=== PATIENT | female | born 1990 | race Caucasian/White ===

== ENCOUNTER 2020-05-12 16:00 | Inpatient (IN) | payer OTHER, SELFPAY ==
[2020-05-12] VITALS (8 sets, daily range): BP systolic 104–113; BP diastolic 63–90; PULSE 84–94; RESP 18–20; TEMP 36.9–37.3; BMI 31.0
--- OUTSIDE RECORDS SUMMARY | 2020-05-12 16:03 | XMS_ITS | Encounter Summary ---
:1990 Author Care Team Providers Name Role Phone Kelvin Fabian Primary Care Provider [phone] Reason for Visit return OB visit Assessment and Plan 1. Routine care ? streptococcus group B, cul ture, vaginal or rectal Discussion Note: None recorded.Patient educational handouts: No information available. Plan of Care Reminders Provider Appointments None recorded. ? ? Lab Streptococcus Gat [facility] Group B, Culture, Vaginal 04/23/2020 [facility] (Lab) or Rectal Referral None recorded. ? ? Procedures None recorded. ? ? Surgeries None recorded. ? ? Imaging None recorded. ? ? Medications Name Start Date ? ? Afluria Quad 7654-8062 (PF) 60 mcg (15 mcg x 4)/0.5 mL IM syringe ? ADM 0.5ML IM UTD ferrous sulfate 325 mg (65 mg iron) tablet ? TK 1 T PO BID PrePlus 27 mg iron-1 mg tablet ? Take 1 tablet every day by oral route. Notes: benadryl daily Medications Administered None recorded. Vitals Weight Blood Pressure 182 lbs 117/71 mm[Hg] Results Lab Results None recorded. Allergies Code Code System Name Reaction Severity Onset
--- OUTSIDE RECORDS SUMMARY | 2020-05-12 16:03 | XMS_ITS | Encounter Summary ---
:1990 Author Care Team Providers Name Role Phone Kelvin Fabian Primary Care Provider [phone] Reason for Visit return OB visit Assessment and Plan 1. Routine care Discussion Note: None recorded.Patient educational handouts: No information available. Plan of Care Reminders Provider Appointments None ? ? recorded. Lab None ? ? recorded. Referral None ? ? recorded. Procedures None ? ? recorded. Surgeries None ? ? recorded. Imaging None ? ? recorded. Medications Name Start Date ? ? Afluria Quad 2535-9919 (PF) 60 mcg (15 mcg x 4)/0.5 mL IM syringe ? ADM 0.5ML IM UTD ferrous sulfate 325 mg (65 mg iron) tablet ? TK 1 T PO BID PrePlus 27 mg iron-1 mg tablet ? Take 1 tablet every day by oral route. Notes: benadryl daily Medications Administered None recorded. Vitals Height Weight Blood Pressure 5 ft 4 in 181 lbs 114/67 mm[Hg] Results Lab Results None recorded. Allergies Code Code System Name Reaction Severity Onset NKDA ? ? ? Problems Name Status Onset Date Source ?
--- OUTSIDE RECORDS SUMMARY | 2020-05-12 16:03 | XMS_ITS ---
:1990 Author Care Team Providers Name Role Phone KAYY BETH Primary Care Provider [phone] Allergies Code Code System Name Reaction Severity Status Onset NKDA ? Medications Name Status Start Date Stop Date ? ? Afluria Quad 7635-1682 (PF) 60 mcg (15 mcg x 4)/0.5 mL IM syring e Active ? Not available ADM 0.5ML IM UTD amoxicillin 500 mg capsule Completed ? 10/18 amoxicillin 875 mg tablet Completed ? 2017 diclofenac 1 % topical gel Completed ? 10/18 DOK 100 mg capsule Completed ? 10/19/2019 ferrous sulfate 325 mg (65 mg iron) Active ? Not available tablet fluticasone propionate 50 mcg/actuation Completed ? 10/19/2019 nasal spray,suspension oxycodone-acetaminophen 5 mg-325 mg Completed ? 03/14/2018 tablet PrePlus 27 mg iron-1 mg tablet Active ? N ot available tramadol 50 mg tablet Completed ? 10/19/2019 Notes: benadryl daily Problems Name Status Onset Date Source ? Unknown 03/28/2018 ? Active 10/19/2019 ? Procedures Date Name Performed by ? 03/14/2018 US, Obstetric, Nuchal Translucency [facility] (One Call Scheduling) [address] [place], [place] [address] (Work Place) 05/10/2018 US, Obstetric, Maternal [facility] (One Call Scheduling) Evaluation + Anatomy [address] [facility]
--- OUTSIDE RECORDS SUMMARY | 2020-05-12 16:03 | XMS_ITS | Encounter Summary ---
:1990 Author Care Team Providers Name Role Phone Kelvin Fabian Primary Care Provider [phone] Reason for Visit return OB visit Assessment [...] Name Start Date ? ? Afluria Quad 2554-1354 (PF) 60 mcg (15 mcg x 4)/0.5 mL IM syringe ? ADM 0.5ML IM UTD ferrous sulfate 325 mg (65 mg iron) tablet ? TK 1 T PO BID PrePlus 27 mg iron-1 mg tablet ? Take 1 tablet every day by oral route. Notes: benadryl daily Medications Administered None recorded. Vitals Weight Blood Pressure 170 lbs 112/67 mm[Hg] Results Lab Results None recorded. Allergies Code Code System Name Reaction Severity Onset NKDA ? ? ? Problems Name Status Onset Date Source ? Active
[2020-05-12 16:34] LABS: Basophils Percent Auto 0.2 % (0.2-1.2); Eosinophils Absolute Auto 0.1 K/mm3 (0-0.3); Eosinophils Percent Auto 0.8 % (0-4.4); Hematocrit 33.4 % (37.0-47.0); Hemoglobin 11.6 g/dL (12.0-15.0); Immature Granulocyte Absolute 0.05 K/mm3 (0.00-0.031); Immature Granulocyte Percent A 0.5 % (0-0.5); Lymphocytes Absolute Auto 1.63 K/mm3 (0.9-3.2); Lymphocytes Percent Auto 15.7 % (18.3-44.2); Mean Corpuscular HGB Conc 34.7 g/dl (32-36); Mean Platelet Volume 10.6 fl (7.4-10.4); Monocytes Absolute Auto 0.6 K/mm3 (0.1-0.6); Neutrophils Percent Auto 76.8 % (45.5-73.1); Platelet Count Result 201 k/mm3 (150-375); Red Blood Count 3.63 M/mm3 (4.2-5.4); Red Cell Distribution Width 12.9 % (11.5-14.5); White Blood Count 10.4 K/mm3 (4.5-10.0)
--- NOTE | 2020-05-12 16:52 | LDADM ---
This patient, Jhoan Faustin, was admitted to Labor/Delivery/Recovery 107 on 05/12/20 at 16:00. Plans for labor, pain management and were discussed with patient. Patient/family oriented to hospital policies and general routines including ID bracelet, bed and alarms, visiting hours, pain management, procedures, bathroom and other care routines, personal items, smoking policy, room service/diet and guest tray routines, security routines, and visiting hours. Patient/Family are encouraged to report perceived risks to care and to ask questions if they do not understand what they are told or what they should do. See OBIX for further documentation.
[2020-05-12] MEDS: DINOPROSTONE 10 MG VAG INSERT VAGINAL (16:54)
[2020-05-13] VITALS (135 sets, daily range): BP systolic 90–117; BP diastolic 52–88; PULSE 60–209; RESP 16–20; TEMP 36.6–37.1; O2SAT 96–100
--- NOTE | 2020-05-13 01:21 | P.PNAN_ITS ---
Anes - Eval Pre Procedure Procedure: Labor epidural Date/Time: 05/13/20 01:21 Surgeon: Lizzie Preop Diagnosis: pain during labor Pre Op Diagnosis: Induction of Labor Patient Data Age: 29 Gender: F Height: 1.63 m Weight: 82 kg Last Vital Signs Temp 37.1 C 05/13/20 00:58 Pulse 83 05/13/20 00:58 Resp 18 05/12/20 21:26 BP 103/69 05/13/20 00:58 Allergies Allergy/AdvReac Type Severity Reaction Status Date / Time No Known Allergies Allergy Unverified 09/17/18 13:45 Home Medications Medication Instructions Recorded Confirmed Type PNV,calcium 07-qtmu-ntuve acid 1 tablet PO DAILY 04/20/20 04/20/20 History [PrePlus] cetirizine [Zyrtec] 10 mg PO DAILY PRN 04/20/20 04/20/20 History ferrous sulfate 325 mg PO BID 04/20/20 04/20/20 History Laboratory Tests 05/12/20 05/12/20 05/12/20 16:28 16:28 16:28 WBC 10.4 K/mm3 H K/mm3 (4.5-10.0) RBC 3.63 M/mm3 L M/mm3 (4.2-5.4) Hgb 11.6 g/dL L g/dL (12.0-15.0) Hct 33.4 % L % (37.0-47.0) MCV 92.0 fl fl (80-100) MCH 32.0 pg pg (26-34) MCHC 34.7 g/dl g/dl (32-36) RDW 12.9 % % (11.5-14.5) Plt Count 201 k/mm3 k/mm3 (150-375) MPV 10.6 fl H fl (7.4-10.4) Immature Gran % (Auto) 0.5 % % (0-0.5) Neut % (Auto) 76.8 % H % (45.5-73.1) Lymph % (Auto) 15.7 % L % (18.3-44.2) [place] % (Auto) 6.0 % % (2.6-8.5) Eos % (Auto) 0.8 % % (0-4.4) Baso % (Auto) 0.2 % % (0.2-1.2) Lymph # (Auto) 1.63 K/mm3 K/mm3 (0.9-3.2) [place] # (Auto) 0.6 K/mm3 K/mm3 (0.1-0.6) Eos # (Auto) 0.1 K/mm3 K/mm3 (0-0.3) Baso # (Auto) 0.0 K/mm3 K/mm3 (0.0-0.1) Abs Immat Gran (auto) 0.05 K/mm3 H K/mm3 (0.00-0.031) Absolute Neuts (auto) 8.0 K/mm3 H K/mm3 (1.3-6.7) Absolute Nucleated RBC 0.0 K/mm3 K/mm3 (0.0-0.012) Nucleated RBC % 0.0 % % (0.0-0.2) RPR Pending Blood Type O Positive Antibody Screen Negative Patient hx anesthesia problems: none Family hx anesthesia problems: none PMFSH Past Medical History Medical History (Updated 05/13/20 @ 01:22 by Portia Harris CRNA) IUP (intrauterine ), incidental Family History Family History (Updated 04/20/20 @ 14:47 by Byron Juarez RN) Mother Patient's mother is in good health Father FH myocardial infarction male first degree age known Grandparent FH myocardial infarction male first degree age known Social History Social History Smoking status: Unknown if ever smoked Alcohol intake: never Substance use: never Spiritual care concerns: No Exam Day of Procedure 05/13/20 01:21
[2020-05-13] MEDS: OXYTOCIN 30 UNITS/NS 500 ML 30 UNITS/500 ML BAG IV CONT (05:23)
[2020-05-13] MEDS: LACTATED RINGERS 1,000 ML 125 ML IV CONT ×3 (05:23→10:26)
--- NOTE | 2020-05-13 08:56 | PM.IMHP ---
H&P: HPI History of Present Illness Date/Time: 05/13/20 08:56 Chief complaint: Induction of Labor Narrative: Jhoan Faustin is a 29 year old female at 40w 3d presenting for cervical ripening and induction of labor at term. This morning she states she is doing well. No issues or concerns. Review of Systems Constitutional: Constitutional: Reports no additional constitutional complaints Cardiovascular: Cardiovascular: Reports no additional cardiovascular complaints Respiratory: Respiratory: Reports no additional respiratory complaints Gastrointestinal: Gastrointestinal: Reports no additional gastrointestinal complaints Genitourinary: Genitourinary: Reports no additional female genitourinary complaints Musculoskeletal: Musculoskeletal: Reports no additional musculoskeletal complaints Psychiatric: Psychiatric: Reports no additional psychiatric complaints Endocrine: Endocrine: Reports no additional endocrine complaints Hematologic/Lymphatic: Hematologic/Lymphatic: Reports no additional hematologic/lymphatic complaints Allergic/Immunologic: Allergic/Immunologic: Reports no additional allergic/immunologic complaints PMFSH Past Medical History Medical History IUP (intrauterine ), incidental Family History Family History Mother Patient's mother is in good health Father FH myocardial infarction male first degree age known Grandparent FH myocardial infarction male first degree age known Social History Social History Smoking status: Unknown if ever smoked Alcohol intake: never Substance use: never Spiritual care concerns: No Meds Home Medications and Allergies Home Medications Medication Instructions Recorded Confirmed Type PNV,calcium 69-ppuf-xbuhy acid 1 tablet PO DAILY 04/20/20 04/20/20 History [PrePlus] cetirizine [Zyrtec] 10 mg PO DAILY PRN 04/20/20 04/20/20 History ferrous sulfate 325 mg PO BID 04/20/20 04/20/20 History Allergies Allergy/AdvReac Type Severity Reaction Status Date / Time No Known Allergies Allergy Unverified 09/17/18 13:45 Vital Signs Vital Signs - 24 hr 05/12/20 16:23 05/12/20 17:00 05/12/20 17:30 Temperature Pulse Rate 94 90 88 Respiratory Rate Blood Pressure 113/72 110/68 104/66 Pulse Oximetry 05/12/20 18:00 05/12/20 18:30 05/12/20 19:00 Temperature 37.3 C Pulse Rate 87 88 93 Respiratory Rate Blood Pressure 108/68 110/90 110/69 Pulse Oximetry 05/12/20 19:01 05/12/20 21:26 05/13/20 00:58 Temperature 36.9 C 36.9 C 37.1 C Pulse Rate 84 83 Respiratory Rate 20 18 Blood Pressure 107/63 103/69 Pulse Oximetry 05/13/20 05:23 05/13/20 05:27 05/13/20 05:30 Temperature 36.6 C Pulse Rate 97 99 Respiratory Rate 20 Blood Pressure 111/67 112/69 Pulse Oximetry 05/13/20 05:45 05/13/20 06:00 05/13/20 06:15 Temperature Pulse Rate 87 95 92 Respiratory Rate Blood Pressure 111/70 111/73 107/72 Pulse Oximetry 05/13/20 06:30 05/13/20 06:45 05/13/20 07:00 Temperature Pulse Rate 93 87 93 Respiratory Rate Blood Pressure 117/68 110/71 105/75 Pulse Oximetry 05/13/20 07:15 05/13/20 07:53 05/13/20 08:18 Temperature 36.6 C Pulse Rate 89 Respiratory Rate Blood Pressure 107/71 Pulse Oximetry 98 05/13/20 08:23 05/13/20 08:28 05/13/20 08:30 Temperature Pulse Rate 85 Respiratory Rate Blood Pressure 103/66 Pulse Oximetry 100 99 05/13/20 08:33 05/13/20 08:38 Temperature Pulse Rate Respiratory Rate Blood Pressure Pulse Oximetry 99 100 Exam Const: General: cooperative, healthy appearing, comfortable and no acute distress HENMT: Head: normocephalic and atraumatic Resp: Effort & Inspection: normal respiratory effort and able to speak in complete sentences Cardio: Rate: regular
--- NOTE | 2020-05-13 09:04 | WPDHPUPDATE1 ---
History and Physical Update Update Date/Time: 05/13/20 09:04 History and Physical has been reviewed, including an updated exam of the patient. There are NO changes in the patient's condition. Risks, benefits, and alternatives have been discussed and questions answered. Patient agrees to proceed with procedure.
[2020-05-13] MEDS: PHENYLEPHRINE 1,000 MCG/10 ML SYRINGE 100 MCG IV PUSH ×2 (11:18→14:32)
[2020-05-13 12:29] LABS: Rapid Plasma Reagin Non-Reactive (NonReactive)
--- NOTE | 2020-05-13 16:49 | PM.OBPRVD ---
OB - Delivery Note Procedure Delivery date: 05/13/20 Procedure: Normal spontaneous vaginal delivery events: Labor Induction Intrapartal events: None Induction method: AROM, per pitocin protocol and per cervidil protocol Delivery monitor: none, external FHT and external uterine Route of delivery: Laceration Description: Perineal - 2nd Degree Delivery repair: vicryl Specimen: No Estimated blood loss (mL): 100 Anesthesia type: Epidural Narrative: Once she was noted to be complete and ready to push, the labor bed was broken down and legs were placed in stirrups for support. With contractions and maternal efforts, the presented in OA position. The head was delivered. Checked for nuchal cord, no nuchal cord noted. Gentle downward traction was applied and the anterior shoulder delivered without issues, followed by the posterior shoulder and rest of the body. was vigorous and crying, so delayed cord clamping of approximately 1 minute was performed. The cord was clamped and cut. Cord gasses collected. Placenta was delivered spontaneously. IV oxytocin administered and fundal massage applied. Exam was performed to identify any lacerations. 2nd degree perineal laceration was repaired with 2-0 Vicryl. Good hemostasis noted. Patient tolerated the procedure well. All instrument and sponge counts were correct at the end of the procedure. [place] Baby Date of : 05/13/20 Time of : 16:28 Weeks of gestation at delivery: 40 Infant gender: Female Weight (pounds): 7 Weight (ounces): 8 presentation: vertex position: Left Occiput Anterior Placenta delivery description: Spontaneous cord vessel description: 3 Vessels score one minute: 9 score five minutes: 9
[2020-05-13] MEDS: OXYTOCIN 30 UNITS/NS 500 ML 30 UNITS/500 ML BAG 125 UNITS IV CONT (17:01)
[2020-05-13] MEDS: WITCH HAZEL 40 PADS 1 PAD TOPICAL (19:02)
[2020-05-13] MEDS: BENZOCAINE 20% AER SPR (*SP) 56 GM CAN 1 SPRAY TOPICAL (19:03)
[2020-05-13] MEDS: IBUPROFEN 600 MG TABLET PO (19:03)
--- NOTE | 2020-05-13 19:36 | PC.NURSE ---
Patient transferred to post room #279 via wheelchair. Support person present. Oriented to unit, room, information board, rooming in, admission packet and security measures. Patient verbalizes understanding.
[2020-05-14] MEDS: IBUPROFEN 600 MG TABLET PO ×3 (04:50→16:41)
[2020-05-14 05:16] LABS: Hematocrit 31.8 % (37.0-47.0); Hemoglobin 10.9 g/dL (12.0-15.0)
[2020-05-14] MEDS: LORATADINE 10 MG TABLET PO (07:33)
[2020-05-14] MEDS: DOCUSATE SODIUM 100 MG CAPSULE PO ×2 (07:33→16:40)
[2020-05-14] MEDS: MULTIVIT/MIN/PREN/FOL AC/IRON TABLET 1 TAB PO (07:33)
[2020-05-14 07:40] VITALS: BP 111/77; PULSE 80; RESP 20; TEMP 36.6
--- NOTE | 2020-05-14 10:00 | PC.NURSE ---
Patient was given the opportunity to view the discharge video Mother & Baby Care, The First Two Weeks and to ask questions. Patient declined viewing the video and has been given the mother/baby guide for home reference.
--- NOTE | 2020-05-14 12:10 | PC.NURSE ---
Consult with pt., mother states infant is eagerly latching with slight tenderness. Mother breastfed first child for 3 months struggling with latch and milk supply. Mother has at breast with a slightly shallow latch, has chin to chest and head turned. Reviewed infant feeding cues, frequencies, duration of feedings, feeding elimination flow sheet, and signs of adequate intake. Demonstrated stimulation techniques to wake infant for feeding. Assisted with infant to breast. Reviewed positioning/alignment in cross cradle, holding breast in U hold and guided asymmetrical latch on. Infant was able to latch correctly to right breast. Infant nursed eagerly, with steady draws and frequent swallowing noted. Reviewed signs of a correct latch, effective nursing and suck swallow ratio. was able to maintain latch without discomfort to mother. Nipple care reviewed. Mother reported no discomfort and could feel is feeding more consistently. Discussed how stimulation and empting of breast may assist with increased milk supply. Suggested mother stimulate to keep infant nursing effectively for increased intake and to assist with maintaining deep latch. Demonstrated how to adjust latch more deeply while feeding. Instructed mother to call out for RN assistance if she is unable to latch for feeding or she has discomfort with nursing. Instructed feeding should be initiated three hours from start of last feeding or if feeding cues are noted before. Mother voiced understanding of information shared. Mother states she wishes for discharge later today. Mother is feeding as required and waking to feed if needed. has had at least 8 effective feedings in the past 24 hours, and is currently meeting outcomes for weight, output, jaundice and feeding frequencies. Mother states she feels confident to continue effective at home. Reviewed transition to breast milk, signs of adequate intake, and engorgement/relief. Instructed to call ICP if intake/output less than required. Reviewed regular medications mother is taking. Information provided per Meredith. Reviewed community resources on the [facility] website and in the Mom/Baby guide. Information on outpatient services provided. Mother has no further questions at this time.
--- NOTE | 2020-05-14 13:45 | WPDANLDPN2 ---
Anes-Prog Note L&D Date/Time: 05/14/20 13:45 Comfortable throughout: labor and delivery Neuraxial method: epidural Epidural/Spinal procedure site: clean & non-tender Neuro status: Neuro function grossly intact. Cardiovascular status: normal Respiratory status: normal Airway patency: baseline Mental status: baseline Post-Op hydration status: normal Vital Signs: Last Vital Signs Temp 36.6 C 05/14/20 07:40 Pulse 80 05/14/20 07:40 Resp 20 05/14/20 07:40 BP 111/77 05/14/20 07:40 Pulse Ox 98 05/13/20 20:00 Pain score (VAS): 07/07 I/O: Intake & Output 05/13/20 05/14/20 05/14/20 23:59 07:59 15:59 Intake Total 1400 Output Total 575 Balance 825 Post-procedural complaints: none Patient feedback: Patient satisfied with anesthetic care.
--- NOTE | 2020-05-14 14:57 | PM.OBDSVD ---
DS: Admitting Diagnosis Admitting Diagnosis Admitting Diagnosis: Induction of Labor DS: Discharge Diagnosis Discharge Diagnosis (1) (normal spontaneous vaginal delivery): Code(s): O80 - Encounter for full-term uncomplicated delivery Status: Acute OB - DS: Summary OB Procedures : None OB Procedures Intrapartum: Spontaneous Vag Delivery OB Procedures: : None Peripartum Data Infant Delivery Method: Natural Vaginal Laceration Description: Perineal - 2nd Degree complications: none Status at Discharge Functional status at discharge: independent ambulation Overall status at discharge: patient is progressing back to baseline Time Spent with Patient Time attestation: Total time spent providing and/or coordinating discharge services: Time spent: Less than 30 minutes Exam Const: General: cooperative, healthy appearing, comfortable, no acute distress, well developed, alert and awake Orientation/consciousness: oriented to person, oriented to place, oriented to time and patient oriented x3 Limitations: no limitations HENMT: Head: normocephalic and atraumatic Resp: Effort & Inspection: normal respiratory effort and able to speak in complete sentences Cardio: Rate: regular rate GI: GI Palp: No abdominal tenderness and Yes Soft to palpation Neuro: General: oriented to person, oriented to place, oriented to time and patient oriented x3 Psych: Appearance: grossly normal and well kempt Mental Status: mental status grossly normal Speech and movement: Normal speech and movement present Affect: normal affect Attitude: cooperative Thought process: Normal thought process present Thought content: Yes Normal thought content present Insight: Good insight present (Psych) Judgement: Good judgement present (Psych) DS: Data Data Completed and Pending Labs on day of discharge: Labs from last 24 hours 05/14/20 04:26 Hgb 10.9 L Hct 31.8 L Discharge Plan Discharge Attending physician on discharge: Dada Samuel Discharging Clinician: Dada Samuel Patient Disposition: Home, Self-Care Activity: may shower, as tolerated and pelvic rest Diet: as tolerated and regular Patient Instructions: Antibiotic Form Stand Alone Forms: General Discharge Information Follow-up/Referrals: Dada Samuel DO [Physician] - (4 weeks for visit) Discharge Medications: New docusate sodium 100 mg Capsule 100 mg PO BID PRN (Reason: Constipation) Qty: 60 RF: 0 ibuprofen 600 mg Tablet 600 mg PO Q6H PRN (Reason: Cramping) Qty: 90 RF: 0 Continued ferrous sulfate 325 mg (65 mg iron) Tablet 325 mg PO BID RF: 0 Zyrtec 10 mg Capsule 10 mg PO DAILY PRN (Reason: Allergic Symptoms) RF: 0 PrePlus 27 mg iron- 1 mg Tablet 1 tablet PO DAILY RF: 0 Date of admission: 05/12/20 16:00 Primary Care Provider: Kelvin Fabian Admitting Provider: Dada Samuel Attending physician on admission: Dada Samuel
--- NOTE | 2020-05-14 15:53 | PC.NURSE ---
Self care and infant care discharge instructions given including follow up visit date and time. Mother verbalized understanding. No questions or concerns verbalized. Very pleasant and cooperative.
[2020-05-14] MEDS: BENZOCAINE 20% AER SPR (*SP) 56 GM CAN 1 SPRAY TOPICAL (16:40)
[2020-05-14] MEDS: WITCH HAZEL 40 PADS 1 PAD TOPICAL (16:40)
[2020-05-15 10:52] VITALS: BP 114/77; PULSE 98; RESP 20; TEMP 36.6
== END 2020-05-14 18:00 | disposition home or self-care (01) | DRG 807 ==
LOC: ANHLDR 16:01 → ANHOB2 05-13 19:42
PROVIDERS: Admitting Provider Obstetrics & Gynecology; PCP Family Medicine; Visit Provider Obstetrics & Gynecology
DX: O76 Abnormality in fetal heart rate and rhythm complicating labor and delivery (principal); Z37.0 Single live birth; O70.1 Second degree perineal laceration during delivery; O48.0 Post-term pregnancy; Z3A.40 40 weeks gestation of pregnancy; Z23 Encounter for immunization
CPT/HCPCS: 36415; 85014; 85018; 85025; 86592; 86850; 86900; 86901; 90471; 90653; A9270; G0008; J2370; J2590; J2795; J7120

== ENCOUNTER 2020-05-22 11:48 | Outpatient (RCR) | payer OTHER, SELFPAY ==
--- NOTE | 2020-05-22 14:56 | PC.NURSE ---
IN 1100 OUT 1145 HISTORY: Pt. delivered at [facility] at 39 weeks. had no complications after delivery. Mother had no complications after delivery. Infant is now days/weeks old. Infant appears to be well cared for. Infant has been seen by ICP as scheduled. Infant seen by ICP on 05/17/2020. Mother reports: She has pain with latch and , more on right than left. Mother will freq pump and offer EBM as a supplement after . Mother is concerned is not getting enough. First child had weight issues. Mother wishes: Breastfeed without discomfort. Currently at 6-8 wets per day and 4-5 yellow seedy stools per day. weight: 7#8 Discharge weight: 7#4 Last Weight: at follow up 6#13 Pre feeding weight: 3658 Post feeding weight: 3679 OBSERVATION: Mother puts infant to breast in cradle positioning, allow to latch shallow to breast. Mother reports pain and infant is on and off with feeding. Reviewed positioning/alignment in cross cradle, holding breast in U hold and guided asymmetrical latch on. was able to latch correctly with first attempt. nursed eagerly, with steady draws and frequent swallowing noted, within a few minutes infant began to have long pausing. Reviewed signs of a correct latch, effective nursing and suck swallow ratio. Infant was able to maintain latch without discomfort to mother. Suggested mother stimulate while feeding to keep in an effective feeding pattern for increased intake and to assist with maintaining deep latch. Demonstrated how to adjust latch more deeply while feeding. Mother was able to independently switch to other breast obtaining deep latch. PLAN: Mother will follow above feeding plan using techniques for deeper latch. Discussed supplementation is not needed if she continues with deep latch and is able to maintain. Stressed to feed on demand or by three hours. Mother will call with further questions or concerns.
--- NOTE | 2020-07-03 13:15 | PC.NURSE ---
Jhoan called today with questions. is 1.5 months old, voiding 7 x in 24hours and stooling 3 times in 24 hours. States is gaining weight well, mom states she weighs at home as well as at the peds appts. Mom states infant is feeding 7-8 times per day; every 2-3 hours during the day and every 3-5 hours during the night. feeds for 15-20 minutes per session. Mom wants to know if this is normal. Encouraged mom that those are all normal times for the to be feeding. If desired mom may supplement with an ounce or more of pumped breastmilk if infant does not seem satisfied after a feeding and see how does. Mom states she pumps after bedtime feeding and after 4am feeding when she feels white. Mom states she has a stock of breastmilk stored up. Mom would like to know if it will effect her supply if she stops pumping after those feedings. Told mom if she would like to stop pumping after to stop for one of the two pumping sessions and see how her supply does. Mom verbalizes understanding. Mom encouraged to call with any questions she has.
== END 2020-06-07 09:08 | disposition home or self-care (01) ==
LOC: ANHOBOP 11:48
PROVIDERS: PCP Family Medicine; Visit Provider Family Medicine
DX: Z39.1 Encounter for care and examination of lactating mother (principal)
CPT/HCPCS: 99212; G0463

== ENCOUNTER 2022-02-20 05:12 | Inpatient (IN) | payer BC, SELFPAY ==
[2022-02-20] VITALS (137 sets, daily range): BP systolic 86–137; BP diastolic 48–108; PULSE 70–116; RESP 18; TEMP 36.1–36.4; O2SAT 95–100; BMI 29.9
--- OUTSIDE RECORDS SUMMARY | 2022-02-20 05:19 | XMS_ITS ---
:1990 Author Care Team Providers Name Role Phone KAYY BETH Primary Care Provider [phone] Allergies Code Code System Name Reaction Severity Status Onset NKDA ? Medications Name Status Start Date Stop Date ? ? Afluria Quad 4535-1002 (PF) 60 mcg (15 mcg x 4)/0.5 mL IM syring e Active ? Not available ADM 0.5ML IM UTD amoxicillin 500 mg capsule Completed ? 10/18 amoxicillin 875 mg tablet Completed ? 2017 clindamycin HCl 300 mg capsule Completed ? 1 08/13/2019 TK ONE C PO Q 8 H diclofenac 1 % topical gel Completed ? 10/18 DOK 100 mg capsule Completed ? 06/12/2020 TK 1 C PO BID PRF CONSTIPATION ferrous sulfate 325 mg (65 mg iron) tablet Active ? Not available fluticasone propionate 50 mcg/actuation nasal Completed ? 10/19/2019 spray,suspension ibuprofen 600 mg tablet Completed ? 06/12/20 20 TK 1 T PO Q 6 H PRF CRAMPING oxycodone-acetaminophen 5 mg-325 mg tablet Completed ? 03/14/2018 PrePlus 27 mg iron-1 mg tablet Active ? N ot available tramadol 50 mg tablet Completed ? 10/19/2019 Notes: benadryl daily Problems Name Status Onset Date Source ? Unknown 03/28/2018 ? Unknown 10/19/2019 ? Procedures Date Name Performed by ? 03/14/2018 US, Obstetric, Nuchal Translucency [facility] (One Call Scheduling) [address] [place], [place] [address] (Work Place) 05/10/2018 US, Obstetric, Maternal [facility]
[2022-02-20 06:30] LABS: Basophils Percent Auto 0.3 % (0.2-1.2); Eosinophils Absolute Auto 0.1 K/mm3 (0-0.3); Eosinophils Percent Auto 0.9 % (0-4.4); Hematocrit 31.2 % (37.0-47.0); Hemoglobin 10.8 g/dL (12.0-15.0); Immature Granulocyte Absolute 0.03 K/mm3 (0.00-0.031); Immature Granulocyte Percent A 0.3 % (0-0.5); Lymphocytes Absolute Auto 1.57 K/mm3 (0.9-3.2); Mean Corpuscular HGB Conc 34.6 g/dl (32-36); Mean Corpuscular Hemoglobin 31.4 pg (26-34); Mean Corpuscular Volume 90.7 fl (80-100); Mean Platelet Volume 10.4 fl (7.4-10.4); Monocytes Absolute Auto 0.6 K/mm3 (0.1-0.6); Neutrophils Absolute Auto 6.4 K/mm3 (1.3-6.7); Neutrophils Percent Auto 73.5 % (45.5-73.1); Platelet Count Result 195 k/mm3 (150-375); Red Blood Count 3.44 M/mm3 (4.2-5.4); Red Cell Distribution Width 13.2 % (11.5-14.5); White Blood Count 8.7 K/mm3 (4.5-10.0)
[2022-02-20] MEDS: LACTATED RINGERS 1,000 ML 125 ML IV CONT ×3 (06:40→12:17)
[2022-02-20] MEDS: AMPICILLIN 2 GM/NS 100 ML 2 GM/100 ML BAG IVPB (06:40)
[2022-02-20] MEDS: OXYTOCIN 30 UNITS/NS 500 ML 30 UNITS/500 ML BAG IV CONT (06:47)
--- NOTE | 2022-02-20 06:53 | LDADM ---
This patient, Jhoan Faustin, was admitted to Labor/Delivery/Recovery 108 on 02/20/22 at 05:12. Plans for labor, pain management and were discussed with patient. Patient/family oriented to hospital policies and general routines including ID bracelet, bed and alarms, visiting hours, pain management, procedures, bathroom and other care routines, personal items, smoking policy, room service/diet and guest tray routines, security routines, and visiting hours. Patient/Family are encouraged to report perceived risks to care and to ask questions if they do not understand what they are told or what they should do. See OBIX for further documentation.
[2022-02-20 07:27] LABS: Rapid Plasma Reagin Non-Reactive (NonReactive)
--- NOTE | 2022-02-20 09:05 | WPDANESEPP ---
Anes - Eval Pre Procedure Procedure: Labor Epidural Date/Time: 02/20/22 09:05 Surgeon: Mariusz Preop Diagnosis: Labor Pain Pre Op Diagnosis: IOL Patient Data Age: 31 Gender: F Height: 1.68 m Weight: 84 kg Last Vital Signs Pulse 89 02/20/22 09:03 BP 110/64 02/20/22 09:03 Pulse Ox 100 02/20/22 09:05 O2 Del Method Room Air 02/20/22 06:52 Allergies Allergy/AdvReac Type Severity Reaction Status Date / Time No Known Allergies Allergy Verified 02/17/22 17:01 Home Medications Medication Instructions Recorded Confirmed Type cetirizine 10 mg capsule (Zyrtec) 10 mg PO DAILY PRN Allergic 04/20/20 02/17/22 History Symptoms ferrous sulfate 325 mg (65 mg 325 mg PO BID 04/20/20 02/17/22 History iron) tablet vitamin with calcium 1 tablet PO DAILY 04/20/20 02/17/22 History no.72-iron 27 mg-folic acid 1 mg tablet (PrePlus) Laboratory Tests 02/20/22 02/20/22 02/20/22 06:24 06:24 06:24 WBC 8.7 K/mm3 K/mm3 (4.5-10.0) RBC 3.44 M/mm3 L M/mm3 (4.2-5.4) Hgb 10.8 g/dL L g/dL (12.0-15.0) Hct 31.2 % L % (37.0-47.0) MCV 90.7 fl fl (80-100) MCH 31.4 pg pg (26-34) MCHC 34.6 g/dl g/dl (32-36) RDW 13.2 % % (11.5-14.5) Plt Count 195 k/mm3 k/mm3 (150-375) MPV 10.4 fl fl (7.4-10.4) Immature Gran % (Auto) 0.3 % % (0-0.5) Neut % (Auto) 73.5 % H % (45.5-73.1) Lymph % (Auto) 18.0 % L % (18.3-44.2) [place] % (Auto) 7.0 % % (2.6-8.5) Eos % (Auto) 0.9 % % (0-4.4) Baso % (Auto) 0.3 % % (0.2-1.2) Lymph # (Auto) 1.57 K/mm3 K/mm3 (0.9-3.2) [place] # (Auto) 0.6 K/mm3 K/mm3 (0.1-0.6) Eos # (Auto) 0.1 K/mm3 K/mm3 (0-0.3) Baso # (Auto) 0.0 K/mm3 K/mm3 (0.0-0.1) Abs Immat Gran (auto) 0.03 K/mm3 K/mm3 (0.00-0.031) Absolute Neuts (auto) 6.4 K/mm3 K/mm3 (1.3-6.7) Absolute Nucleated RBC 0.0 K/mm3 K/mm3 (0.0-0.012) Nucleated RBC % 0.0 % % (0.0-0.2) RPR Non-reactive (NonReactive) Blood Type O Positive Antibody Screen Negative : gestational age (FLORI 02/21/22, ) Patient hx anesthesia problems: none Family hx anesthesia problems: none Results Review: All pre-operative results and documents have been reviewed as part of the pre-operative evaluation. 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
[2022-02-20] MEDS: AMPICILLIN 1 GM/NS 50 ML 1 GM/50 ML BAG IVPB ×2 (10:44→14:36)
--- NOTE | 2022-02-20 16:35 | WPDHPUPDATE1 ---
History and Physical Update Update Date/Time: 02/20/22 16:35 History and Physical has been reviewed, including an updated exam of the patient. There are NO changes in the patient's condition. Risks, benefits, and alternatives have been discussed and questions answered. Patient agrees to proceed with procedure.
--- NOTE | 2022-02-20 16:36 | WPDOBADMIT ---
Obstetrics - Admit Note Admission Note: record reviewed. No pertinent additions to the history and/or any subsequent changes in the physical findings that are not consistent with the expected course of the were found. Additions to the history and/or subsequent changes in the physical findings follow. None.
--- NOTE | 2022-02-20 16:36 | PM.OBPRVD ---
OB - Delivery Note Procedure Induction method: Per Pitocin Protocol Delivery augmentation: Rupture of Membranes Delivery monitor: External FHT and Internal Uterine Route of delivery: Episiotomy description: None Laceration Description: Perineal - 1st Degree Delivery repair: chromic Specimen: No Quantitative Blood Loss (ml): 300 Anesthesia type: Epidural Disposition: Floor Complications: None Narrative: patient prepped draped usual manner for this procedure. Maternal expulsive efforts readily delivered vertex followed by the rest of baby without difficulty. Cord clamped and cut and placenta delivered spontaneously. Uterus well contracted with minimal bleeding. Sec first-degree laceration was approximated using 2-0 chromic in running interlocking manner to approximate the perineum and the deep tissue. There was a moderate amount of oozing so a uterine exploration sweep was performed with old clots but no tissue. Uterus was well contracted at this point and no significant bleeding. Baby Weeks of gestation at delivery: 39 Infant gender: Female Weight (pounds): 7 Weight (ounces): 15 presentation: vertex Placenta delivery description: Spontaneous Cord Vessel Description: 3 Vessels score one minute: 8 score five minutes: 9 AMG Delivery Billing Delivery Delivery: Delivery Charge
[2022-02-20] MEDS: OXYTOCIN 30 UNITS/NS 500 ML 30 UNITS/500 ML BAG 125 UNITS IV CONT (16:58)
[2022-02-20] MEDS: BENZOCAINE 20% AER SPR (*SP) 56 GM CAN 1 SPRAY TOPICAL (18:41)
[2022-02-20] MEDS: WITCH HAZEL 40 PADS 1 PAD TOPICAL (18:41)
--- NOTE | 2022-02-20 18:54 | PC.NURSE ---
Patient transferred to post room #292 per wheelchair from labor and delivery. Support person present. Oriented to unit, room, information board, rooming in, admission packet and security measures. Patient verbalizes understanding.
[2022-02-21 05:20] VITALS: BP 104/71; PULSE 80; RESP 16; TEMP 36.8
[2022-02-21 05:56] LABS: Hematocrit 30.6 % (37.0-47.0); Hemoglobin 10.4 g/dL (12.0-15.0)
--- NOTE | 2022-02-21 06:36 | P.DS_ITS ---
DS: Admitting Diagnosis Discharge Date 02/21/2022 Admitting Diagnosis OB - DS: Summary OB Procedures : None OB Procedures Intrapartum: Spontaneous Vag Delivery OB Procedures: : None Time Spent with Patient Time attestation: Total time spent providing and/or coordinating discharge services: DS: Data Data Completed and Pending Labs on day of discharge: Labs from last 24 hours 02/21/22 02/20/22 02/20/22 05:24 06:24 06:24 WBC RBC Hgb 10.4 L Hct 30.6 L MCV MCH MCHC RDW Plt Count MPV Immature Gran % (Auto) Neut % (Auto) Lymph % (Auto) [place] % (Auto) Eos % (Auto) Baso % (Auto) Lymph # (Auto) [place] # (Auto) Eos # (Auto) Baso # (Auto) Abs Immat Gran (auto) Absolute Neuts (auto) Absolute Nucleated RBC Nucleated RBC % RPR Non-reactive Blood Type O Positive Antibody Screen Negative 02/20/22 06:24 WBC 8.7 RBC 3.44 L Hgb 10.8 L Hct 31.2 L MCV 90.7 MCH 31.4 MCHC 34.6 RDW 13.2 Plt Count 195 MPV 10.4 Immature Gran % (Auto) 0.3 Neut % (Auto) 73.5 H Lymph % (Auto) 18.0 L [place] % (Auto) 7.0 Eos % (Auto) 0.9 Baso % (Auto) 0.3 Lymph # (Auto) 1.57 [place] # (Auto) 0.6 Eos # (Auto) 0.1 Baso # (Auto) 0.0 Abs Immat Gran (auto) 0.03 Absolute Neuts (auto) 6.4 Absolute Nucleated RBC 0.0 Nucleated RBC % 0.0 RPR Blood Type Antibody Screen Discharge Plan Discharge Discharging Clinician: Td Vee Patient Disposition: Home, Self-Care Activity: as tolerated Diet: as tolerated Patient Instructions: Antibiotic Form Stand Alone Forms: General Discharge Information Follow-up/Referrals: Td Vee MD [Physician] - 3 Weeks Discharge Medications: New ibuprofen 600 mg Tablet 600 mg PO Q6H PRN (Reason: Cramping) Qty: 30 0RF Continued ferrous sulfate 325 mg (65 mg iron) Tablet 325 mg PO BID Zyrtec 10 mg Capsule 10 mg PO DAILY PRN (Reason: Allergic Symptoms) PrePlus 27 mg iron- 1 mg Tablet 1 tablet PO DAILY Date of admission: 02/20/22 05:12 Primary Care Provider: Kelvin Castañeda Admitting Provider: Td Vee Attending physician on admission: Td Vee Condition: Stable
[2022-02-21 08:00] VITALS: BP 104/72; PULSE 73; RESP 16; TEMP 36.6; O2SAT 100
[2022-02-21] MEDS: DOCUSATE SODIUM 100 MG CAPSULE PO ×2 (08:12→16:41)
[2022-02-21] MEDS: MULTIVIT/MIN/PREN/FOL AC/IRON TABLET 1 TAB PO (08:12)
--- NOTE | 2022-02-21 08:15 | WPDANLDPN2 ---
Anes-Prog Note L&D Date/Time: 02/21/22 08:15 Comfortable throughout: labor and delivery Neuraxial method: epidural Epidural/Spinal procedure site: clean & non-tender Neuro status: Neuro function grossly intact. Cardiovascular status: normal Respiratory status: normal Airway patency: baseline Mental status: baseline Post-Op hydration status: normal Vital Signs: Last Vital Signs Temp 98.2 F 02/21/22 05:20 Pulse 80 02/21/22 05:20 Resp 16 02/21/22 05:20 BP 104/71 02/21/22 05:20 Pulse Ox 100 02/20/22 16:12 O2 Del Method Room Air 02/20/22 06:52 Pain score (VAS): 0 I/O: Intake & Output 02/20/22 02/21/22 02/21/22 23:59 07:59 15:59 Intake Total 1000 Balance 1000 Post-procedural complaints: none Patient feedback: Patient satisfied with anesthetic care.
[2022-02-21 11:45] VITALS: BP 105/72; PULSE 79; RESP 16; TEMP 36.6; O2SAT 98
[2022-02-21] MEDS: IBUPROFEN 600 MG TABLET PO (11:49)
[2022-02-21 16:40] VITALS: BP 112/72; PULSE 74; RESP 16; TEMP 36.5; O2SAT 99
[2022-02-23 13:32] VITALS: BP 118/77; PULSE 98; RESP 16; TEMP 36.6; O2SAT 100
== END 2022-02-21 17:42 | disposition home or self-care (01) | DRG 807 ==
LOC: ANHLDR 05:17 → ANHOB2 19:19
PROVIDERS: Admitting Provider Obstetrics & Gynecology; PCP Family Medicine; Visit Provider Obstetrics & Gynecology
DX: O99.824 Streptococcus B carrier state complicating childbirth (principal); Z37.0 Single live birth; O70.0 First degree perineal laceration during delivery; O76 Abnormality in fetal heart rate and rhythm complicating labor and delivery; Z3A.39 39 weeks gestation of pregnancy
CPT/HCPCS: 36415; 85014; 85018; 85025; 86592; 86850; 86900; 86901; A9270; J0290; J2590; J2795; J7120